=== PATIENT | female | born 1965 ===

== ENCOUNTER 2016-08-06 22:46 | Emergency (ER) | payer OTHER ==
[2016-08-06 23:02] VITALS: BP 146/87; PULSE 70; RESP 18; TEMP 98.1; O2SAT 97
[2016-08-07] MEDS ORDERED: Oxycodone/Acetaminophen 5/325 mg Tab PO STA (00:01)
--- NOTE | 2016-08-07 00:03 | C.PDOC ---
History Of Present Illness Patient is a 51 year old female who presents to the ER with a complaint of right knee pain and swelling for the past few months. Patient saw PMD who sent her for an x-ray of the right knee, results came back negative. Patient is currently on naproxen. Denies any injury or trauma. Time Seen by Provider: 08/06/16 23:11 Chief Complaint (Nursing): Lower Extremity Problem/Injury History Per: Patient History/Exam Limitations: no limitations Onset/Duration Of Symptoms: Days (Months) Current Symptoms Are (Timing): Still Present Past Medical History Reviewed: Historical Data, Nursing Documentation, Vital Signs Vital Signs: Last Vital Signs Temp 98.1 F 08/06/16 22:57 Pulse 70 08/06/16 22:57 Resp 18 08/06/16 22:57 BP 146/87 08/06/16 22:57 Pulse Ox 97 08/07/16 00:34 - Medical History PMH: Arthritis, HTN Surgical History: No Surg Hx Family History: States: No Known Family Hx - Social History Hx Alcohol Use: No Hx Substance Use: No - Immunization History Hx Tetanus Toxoid Vaccination: No Hx Influenza Vaccination: No Hx Pneumococcal Vaccination: No Review Of Systems Except As Marked, All Systems Reviewed And Found Negative. Constitutional: Negative for: Fever, Chills Gastrointestinal: Negative for: Nausea, Vomiting, Diarrhea Musculoskeletal: Positive for: Leg Pain (Right knee and swelling) Physical Exam - Physical Exam Appears: Well, Non-toxic Skin: Normal Color, Warm, Dry Head: Atraumatic, Normacephalic Oral Mucosa: Moist Extremity: No Calf Tenderness, Swelling (Mild, right knee), Other (Patient is ambulatory) Neurological/Psych: Oriented x3, Normal Speech, Normal Cognition Gait: Steady ED Course And Treatment O2 Sat by Pulse Oximetry: 97 (Room air) Pulse Ox Interpretation: Normal Progress Note: Percocet PO administered. Knee brace was applied by RN and checked by me. patient was d/c home with Orthopedist f/u. Disposition - Disposition Referrals: Non [facility] Provider, [Primary Care Provider] - Xochitl Mi MD [Staff Provider] - Disposition: HOME/ ROUTINE Disposition Time: 00:02 Condition: STABLE Additional Instructions: Follow up with your PMD and Orthopedist within 2-3 days. Return to ED if feel worse. Prescriptions: oxyCODONE/Acetaminophen [Percocet 5/325 mg Tab] 1 tab PO QID PRN #20 tab PRN Reason: Pain Instructions: Knee Pain (ED) - Clinical Impression Clinical Impression: Knee pain - Scribe Statement The provider has reviewed the documentation as recorded by the Scribe Mich Vines All medical record entries made by the Juanibe were at my direction and personally dictated by me. I have reviewed the chart and agree that the record accurately reflects my personal performance of the history, physical exam, medical decision making, and the department course for this patient. I have also personally directed, reviewed, and agree with the discharge instructions and disposition.
[2016-08-07] MEDS ORDERED: Oxycodone/Acetaminophen 5/325 mg Tab ONE (00:07)
== END 2016-08-07 00:09 | disposition home or self-care (01) ==
LOC: SUPCPDRO 22:46 → C.ER 22:46
DX: M25.561 Pain in right knee (principal); I10 Essential (primary) hypertension

== ENCOUNTER 2017-08-16 00:10 | Emergency (ER) | payer OTHER ==
[2017-08-16 00:18] VITALS: BMI 31.1
[2017-08-16 00:22] VITALS: RESP 18
--- NOTE | 2017-08-16 00:42 | C.PDOC ---
History Of Present Illness 52 year old female with no significant PMHx presents to the ED c/o lower abdominal pain associated with urinary frequency and urgency for the past week. Patient reports she went to see her PMD who prescribed her some medication that she states has not helped with symptoms. Patient denies back pain, nausea, vomit , fever, chills. Chief Complaint (Nursing): Abdominal Pain History Per: Patient History/Exam Limitations: no limitations Onset/Duration Of Symptoms: Days Current Symptoms Are (Timing): Still Present Location Of Pain/Discomfort: Suprapubic Radiation Of Pain To:: None Quality Of Discomfort: "Pain" Associated Symptoms: Urinary Symptoms Exacerbating Factors: None Alleviating Factors: None Recent travel outside of the [place]: No Additional History Per: Patient Abnormal Vaginal Bleeding: No Past Medical History Reviewed: Historical Data, Nursing Documentation, Vital Signs Vital Signs: Last Vital Signs Temp 98.0 F 08/16/17 01:42 Pulse 67 08/16/17 01:42 Resp 18 08/16/17 01:42 BP 147/90 08/16/17 01:42 Pulse Ox 100 08/16/17 01:42 - Medical History PMH: Arthritis, HTN Surgical History: No Surg Hx Family History: States: Unknown Family Hx - Social History Hx Alcohol Use: No Hx Substance Use: No - Immunization History Hx Tetanus Toxoid Vaccination: No Hx Influenza Vaccination: No Hx Pneumococcal Vaccination: No Review Of Systems Constitutional: Negative for: Fever, Chills Cardiovascular: Negative for: Chest Pain Respiratory: Negative for: Shortness of Breath Gastrointestinal: Positive for: Abdominal Pain Genitourinary: Positive for: Frequency Musculoskeletal: Negative for: Back Pain Skin: Negative for: Rash Neurological: Negative for: Weakness, Numbness Physical Exam - Physical Exam Appears: Non-toxic, No Acute Distress, Other (moderate obese) Skin: Normal Color, Warm, Dry Head: Atraumatic, Normacephalic Eye(s): bilateral: Normal Inspection Nose: No Discharge Oral Mucosa: Moist Neck: Normal ROM, Supple Chest: Symmetrical Cardiovascular: Rhythm Regular, No Murmur Respiratory: Normal Breath Sounds, No Rales, No Rhonchi, No Wheezing Gastrointestinal/Abdominal: Soft, Tenderness (mild suprapubic ), No Guarding, No Rebound Extremity: Normal ROM, No Tenderness, No Swelling Neurological/Psych: Oriented x3 Gait: Steady ED Course And Treatment O2 Sat by Pulse Oximetry: 96 (On RA) Pulse Ox Interpretation: Normal Medical Decision Making Medical Decision Making: Impression: abdominal pain Plan: * UA Disposition - Disposition Referrals: [facility] [Outside] Disposition: HOME/ ROUTINE Disposition Time: :09 Condition: FAIR Prescriptions: Phenazopyridine [Pyridium] 100 mg PO TID #6 tab Sulfamethoxazole/Trimethoprim [Bactrim DS 800 mg-160 mg] 1 tab PO BID #14 tab Instructions: Urinary Tract Infections in Adults Forms: [facility] (N[place]ien) - Clinical Impression Clinical Impression: Cystitis - Scribe Statement The provider has reviewed the documentation as recorded by the Scribe Erickson Monroy All medical record entries made by the Scribe were at my direction and personally dictated by me. I have reviewed the chart and agree that the record accurately reflects my personal performance of the history, physical exam, medical decision making, and the department course for this patient. I have also personally directed, reviewed, and agree with the discharge instructions and disposition.
[2017-08-16 00:59] LABS: SQUAMOUS EPITHIAL 1 /hpf (0-5); URINE BACTERIA RARE (<OCC); URINE BILIRUBIN NEGATIVE (NEGATIVE); URINE BLOOD 2+ (NEGATIVE); URINE CLARITY Clear (Clear); URINE COLOR Straw (YELLOW); URINE GLUCOSE (UA) NORMAL (Normal); URINE LEUKOCYTE ESTERASE TRACE Leu/uL (Negative); URINE PROTEIN NEGATIVE (NEGATIVE); URINE UROBILINOGEN NORMAL mg/dL (0.2-1.0)
[2017-08-16 01:02] LABS: HCG,QUALITATIVE URINE NEGATIVE (NEGATIVE)
[2017-08-16] MEDS ORDERED: Tmp-Smz 800 mg-160 mg DS Tab PO STA (01:12)
[2017-08-16] MEDS ORDERED: Tmp-Smz 800 mg-160 mg DS Tab ONE (01:34)
[2017-08-16 01:44] VITALS: BP 147/90; PULSE 67; TEMP 98
[2017-08-16 04:39] VITALS: O2SAT 96
== END 2017-08-16 01:44 | disposition home or self-care (01) ==
LOC: C.ER 00:10
DX: N30.90 Cystitis, unspecified without hematuria (principal)

== ENCOUNTER 2017-08-29 00:35 | Emergency (ER) | payer OTHER ==
[2017-08-29 00:35] VITALS: BMI 31.1
[2017-08-29 00:53] VITALS: BP 127/76; PULSE 69; RESP 20; TEMP 98.2; O2SAT 98
[2017-08-29 02:17] LABS: SQUAMOUS EPITHIAL < 1 /hpf (0-5); URINE BACTERIA MOD (<OCC); URINE BILIRUBIN NEGATIVE (NEGATIVE); URINE BLOOD 2+ (NEGATIVE); URINE CLARITY Clear (Clear); URINE COLOR Yellow (YELLOW); URINE GLUCOSE (UA) NORMAL (Normal); URINE HYALINE CAST 0-2 /lpf (0-2); URINE LEUKOCYTE ESTERASE 1+ Leu/uL (Negative); URINE PROTEIN NEGATIVE (NEGATIVE); URINE UROBILINOGEN NORMAL mg/dL (0.2-1.0)
--- NOTE | 2017-08-29 02:50 | C.PDOC ---
History Of Present Illness 52yo female, comes to ER with complaints of suprapubic pain, dysuria and hesitancy. She reports frequent UTI in the past and has been on intermittent course of antibiotics for the past 7 months. Patient was advised to follow up with an ID specialist but has not done so yet. She denies any fever, vomiting, or diarrhea. She has no other complaints. Time Seen by Provider: 08/29/17 01:13 Chief Complaint (Nursing): Female Genitourinary History Per: Patient History/Exam Limitations: no limitations Onset/Duration Of Symptoms: Intermittent Episodes, Persistent Current Symptoms Are (Timing): Still Present Associated Symptoms: Urinary Symptoms Additional History Per: Patient Past Medical History Reviewed: Historical Data, Nursing Documentation, Vital Signs Vital Signs: Last Vital Signs Temp 98.2 F 08/29/17 00:44 Pulse 69 08/29/17 00:44 Resp 20 08/29/17 00:44 BP 127/76 08/29/17 00:44 Pulse Ox 98 08/29/17 02:54 - Medical History PMH: Arthritis, HTN Family History: States: No Known Family Hx, Unknown Family Hx - Social History Hx Alcohol Use: No Hx Substance Use: No - Immunization History Hx Tetanus Toxoid Vaccination: No Hx Influenza Vaccination: No Hx Pneumococcal Vaccination: No Review Of Systems Except As Marked, All Systems Reviewed And Found Negative. Constitutional: Negative for: Fever, Chills Gastrointestinal: Positive for: Abdominal Pain. Negative for: Vomiting, Diarrhea Genitourinary: Positive for: Dysuria, Frequency Physical Exam - Physical Exam Appears: Non-toxic, No Acute Distress Skin: Normal Color, Warm, Dry Head: Atraumatic, Normacephalic Eye(s): bilateral: Normal Inspection, PERRL Neck: Normal ROM, Supple Chest: Symmetrical Cardiovascular: Rhythm Regular Respiratory: Normal Breath Sounds Gastrointestinal/Abdominal: Soft, Tenderness (suprapubic), No Guarding, No Rebound Back: Normal Inspection, No CVA Tenderness Extremity: Normal ROM Neurological/Psych: Oriented x3 ED Course And Treatment O2 Sat by Pulse Oximetry: 98 (RA) Pulse Ox Interpretation: Normal Progress Note: Urinalysis completed and reviewed, indicates a UTI. Patient to be discharged home on a course of antibiotics. Patient was extensively informed on the need for follow up and expresses understanding. Disposition Counseled Patient/Family Regarding: Diagnosis, Need For Followup, Rx Given - Disposition Disposition: HOME/ ROUTINE Disposition Time: 02:47 Condition: STABLE Additional Instructions: Please follow up with PMD Take meds as directed Return to ER if worse Prescriptions: Nitrofurantoin Macrocrystals [Macrobid] 1 cap PO BID #14 cap Instructions: Urinary Tract Infection, Adult (DC) Forms: General Discharge Instructions - Clinical Impression Clinical Impression: Urinary tract infection - PA / BEHAVIORAL HEALTH DIRECTOR / Resident Statement MD/DO has reviewed & agrees with the documentation as recorded. - Scribe Statement The provider has reviewed the documentation as recorded by the Scribe (Louise Hannah) Provider Attestation: All medical record entries made by the Juanibe were at my direction and personally dictated by me. I have reviewed the chart and agree that the record accurately reflects my personal performance of the history, physical exam, medical decision making, and the department course for this patient. I have also personally directed, reviewed, and agree with the discharge instructions and disposition.
== END 2017-08-29 03:03 | disposition home or self-care (01) ==
LOC: C.ER 00:35
DX: N39.0 Urinary tract infection, site not specified (principal)